=== PATIENT | male | born 1985 | race Two or more races ===

== ENCOUNTER 2018-07-07 08:25 | Emergency (ER) | payer OTHER ==
[~2018-07-07] VITALS: Ht 180.3 cm; Wt 80.3 kg
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
[2018-07-07] MEDS ORDERED: TDAP [DIPH/PERTUSSIS/TET] 0.5 ML VIAL IM ONE ×2 (08:47→09:00)
[2018-07-07] MEDS ORDERED: LIDOCAINE 1% INJ 50 ML MDV IJ ONE ×2 (08:47→09:00)
--- NOTE | 2018-07-07 08:52 | NUR ---
medical transcription radiology at bedside for xray.
[2018-07-07] MEDS ORDERED: BACITRACIN ZINC OINT PACKET 1 EA PACKET TP ONE (09:54)
[2018-07-07 10:16] VITALS: BP 134/88
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
== END 2018-07-07 10:16 ==
LOC: ER 08:27
DX: S01.81XA Laceration without foreign body of other part of head, initial encounter (principal); S11.81XA Laceration without foreign body of other specified part of neck, initial encounter; S60.511A Abrasion of right hand, initial encounter; Y00.XXXA Assault by blunt object, initial encounter; Y93.89 Activity, other specified; Y92.89 Other specified places as the place of occurrence of the external cause; Y99.8 Other external cause status
CPT/HCPCS: 70450-TC; 73080-TC; 73110; 73552; 90715; A6402; A6403; J3490